=== PATIENT | female | born 1975 | race African-American/Black ===

== ENCOUNTER 2021-04-03 12:12 | Inpatient (IN) | payer OTHER ==
[~2021-04-03] VITALS: Ht 157.5 cm; Wt 87.0 kg
--- NOTE | ~2021-04-03 | EMS ---
[address] [address] EMS Patient Care Report Name: MURIEL ALVARENGA Room #: 206-P ADM IN M.R.#: [id number] Admission: 04/03/21 Attend Phys: Alfredo Bernal MD Discharge: Date of : 73 Report #: [id number] THIS REPORT FOR: //name// Report Transmitted: 04/07/2021 07:56 EMS Care Summary [place], [place]/[facility] Incident [id number] @ 04/03/2021 11:21 Incident Location [address] [place] [address] Patient MURIEL ALVARENGA Female, 45 Years 1975 Patient Address [address] [place] [address] Patient History Diabetes,Hypertension (HTN), Patient Allergies No known allergies, Patient Medications None Reported, Chief Complaint ABNORMAL RIGHT LEG WEAKNESS Disposition Transported No Lights/[place] Dispatch Reason Sick Person Transported To [facility] Narrative EMS ARRIVED ON SCENE AT THE ADDRESS ABOVE. EMS MADE PT CONTACT, PT WAS SITTING ON HER COUCH, GCS 15 IN NO REPORTED PAIN. PT STATED THAT SHE HAS HAD AN ABNOMRAL GAIT SINCE 2PM YESTERDAY, PT HAS HISTORY OF HYPERTENSION AND HAS BEEN [address] [address] EMS Patient Care Report Name: MURIEL ALVARENGA Room #: 206-P ADM IN Tamir#: [id number] Admission: 04/03/21 Attend Phys: Alfredo Bernla MD Discharge: Date of : 73 Report #: [id number] WITHOUT MEDS FOR AN EXTENEDED AMOUNT OF TIME. PT HAS NO HISTORY OF STROKE. EMS HAD LONG SCENE TIME DUE TO PT CHANGING CLOTHES BEFORE HOSPITAL. PT WAS NEGATIVE FOR STROKE F.A.S.T ASSESSMENT. VITAL SIGNS WERE MONITORED THROUGHOUT TRANSPORT WITH NO DECLINE IN MENTAL OR PHYSICAL STATUS. TRANSFER OF CARE WAS GIVEN TO RN AT [facility]. Initial Vitals @11:39P: 116,R: 16,BP: 185/114,Pain: 0/10,GCS: 15,CO: 2,SpO2: 98,Revised Trauma: 12, @11:48P: 111,R: 18,BP: 182/112,Pain: 0/10,GCS: 15,SpO2: 99,Revised Trauma: 12, @11:57P: 102,R: 16,BP: 179/108,Pain: 0/10,GCS: 15,SpO2: 99,Revised Trauma: 12, Assessments @:28MENTAL:Person Oriented,Place Oriented,Event Oriented,Time Oriented,SKIN:HEENT:Head/Face: No Abnormalities,Neck/Airway: No Abnormalities,LUNG SOUNDS:General: No Abnormalities,ABDOMEN:General: No Abnormalities,PELVIS//GI:No Abnormalities,EXTREMITIES:Right Leg: Weakness,Left Arm: No Abnormalities,Right Arm: No Abnormalities,Left Leg: No Abnormalities,PULSE:NEURO:Abnormal Gait, Impression Generalized Weakness Procedures @11:28 ALS Assessment Response: UnchangedSucceeded Timeline 11:19,Call Received 11:19,Dispatch Notified 11:21,Dispatched 11:22,En Route 11:27,On Scene 11:28,At Patient 11:28,ALS Assessment,Response: UnchangedSucceeded, 11:39,BP: 185/114 M,PULSE: 116,RR: 16 R,SPO2: 98 Ox,ETCO2: ,BG: ,PAIN: 0,GCS: 15, 11:48,BP: 182/112 M,PULSE: 111,RR: 18 R,SPO2: 99 Ox,ETCO2: ,BG: ,PAIN: 0,GCS: 15, 11:55,Depart Scene 11:57,BP: 179/108 M,PULSE: 102,RR: 16 R,SPO2: 99 Ox,ETCO2: ,BG: ,PAIN: 0,GCS: 15, 12:05,At Destination 12:25,Call Closed Disclaimer [address] [address] EMS Patient Care Report Name: MURIEL ALVARENGA Room #: 206-P ADM IN .R.#: [id number] Admission: 04/03/21 Attend Phys: Alfredo Bernal MD Discharge: Date of : 73 Report #: [id number] v1.1 Copyright 2020 [employer] This EMS Care Summary contains data elements from the applicable legal record (which may be displayed differently). It is designed to provide pertinent information for the following purposes: continuity of care, clinical quality, and state data reporting. The complete legal record is available to ED staff and administrators of the receiving hospital in [facility]'s Patient Tracker. All data is provided "as is."
[2021-04-03 12:15] VITALS: BP 204/124
[2021-04-03 12:50] LABS: HEMATOCRIT 34.9 % (37.0-47.0); HEMOGLOBIN 10.9 gm/dL (12.0-15.0); MCH 21.6 pg (26.0-34.0); MCHC 31.3 g/dL (28.0-37.0); PLATELET COUNT 401 thou/uL (150-400); RBC 5.05 mil/uL (4.20-5.00); WBC 7.4 thou/uL (4.0-11.0)
[2021-04-03 13:04] LABS: ANION GAP 12 mmol/L (7-16); BUN 26 mg/dL (7-18); CALCIUM 9.2 mg/dL (8.5-10.1); CHLORIDE 100 mmol/L (98-107); CO2 26 mmol/L (21-32); CREATININE 1.2 mg/dL (0.6-1.0); GLUCOSE 224 mg/dL (74-106); POTASSIUM 3.4 mmol/L (3.5-5.1); SODIUM 138 mmol/L (136-145)
[2021-04-03 13:16] LABS: ALBUMIN 3.4 g/dL (3.4-5.0); DIRECT BILIRUBIN < 0.1 mg/dL (<0.1-0.2); SGOT 9 U/L (15-37); SGPT 19 U/L (30-65); TOTAL BILIRUBIN 0.4 mg/dL (0.2-1.0); TOTAL PROTEIN 7.9 g/dL (6.4-8.2)
[2021-04-03 13:57] LABS: URINE BILIRUBIN NEGATIVE (Negative); URINE BLOOD NEGATIVE (Negative); URINE CLARITY CLEAR; URINE COLOR YELLOW; URINE GLUCOSE-RANDOM* 1+ (Negative); URINE KETONES NEGATIVE (Negative); URINE LEUKOCYTES-REFLEX NEGATIVE (Negative); URINE NITRITE-REFLEX NEGATIVE (Negative); URINE PROTEIN (DIPSTICK) TRACE (Negative); URINE SPECIFIC GRAVITY 1.025 (1.005-1.035); URINE UROBILINOGEN 0.2 E.U./dl (0.2-1.0)
--- NOTE | 2021-04-03 14:05 | EKG ---
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
[2021-04-03 14:23] LABS: HYPOCHROMASIA 1+; POIKILOCYTOSIS 1+
[2021-04-03 14:24] LABS: ANISOCYTOSIS 2+; MICROCYTES 2+
[2021-04-03] MEDS ORDERED: AMLODIPINE BESY10 MG PO (17:13)
[2021-04-03 17:57] LABS: FOLIC ACID 16.7 ng/mL (8.6-58.9)
--- NOTE | 2021-04-03 20:30 | NUR ---
SPOKE WITH BLUE ANDREY NEURO PHYSICIAN IN ORDER TO RECEIVE PARAMETERS FOR PT SBP.
[2021-04-04 00:27] VITALS: BP 159/86
[2021-04-04 04:06] LABS: GLYCOHEMOGLOBIN (HGB A1C) 8.7 % (4.8-5.6)
[2021-04-04 04:54] LABS: CALCIUM 8.8 mg/dL (8.5-10.1); CREATININE 1.4 mg/dL (0.6-1.0)
[2021-04-04 04:55] LABS: CHOLESTEROL 252 mg/dL (<200); HDL CHOLESTEROL 61 mg/dL (>40); LDL CHOLESTEROL 169 mg/dL (<100); SERUM ASSESSMENT Clear; TC:HDL 4.1 Ratio (Not establshd); TRIGLYCERIDE 110 mg/dL (<150); VLDL 22 mg/dL (<40)
[2021-04-04 05:56] LABS: HEMATOCRIT 31.4 % (37.0-47.0); MCHC 31.7 g/dL (28.0-37.0); MCV 69.5 fL (80.0-100.0); RBC 4.52 mil/uL (4.20-5.00); WBC 7.9 thou/uL (4.0-11.0)
--- NOTE | 2021-04-04 10:53 | EKG ---
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 : 1975 Requested By: Alfredo Bernal Order Number: [id number] MD: Siva Deivne Measurements Intervals [place] Rate: 101 P: 24 NE: 171 QRS: 8 QRSD: 106 T: 58 QT: 400 QTc: 519 Interpretive Statements Sinus tachycardia Probable anteroseptal infarct Prolonged QT interval Compared to ECG 04/03/2021 12:48:36 Prolonged QT interval now present Sinus rhythm no longer present Myocardial infarct finding still present Electronically Signed On 04-04-2021 10:53:15 SEWING TECHNIQUES DEMONSTRATOR by Siva Devine [email or web address] <ELECTRONICALLY SIGNED> By: Siva Devine MD 04/04/21 1053 D: 12/2309 09 Siva Devine MD /SU
[2021-04-04 12:01] VITALS: BP 141/74
--- NOTE | 2021-04-04 12:07 | NUR ---
ISAIAH WAS CONTACTED @0586 REGARDING THE NEURO CONSULT FROM 04/03 @1060 TRYING TO RECEIVE INFORMATION FROM SAID CONSULT. NO NOTE OR PLAN WAS DOCUMENTED REGARDING THE CONSULT. DR. MANUEL WAS THE PHYSICIAN OF THE CONSULT AND WILL NOT BE AVAILABLE AGAIN UNTIL 1700 OF 04/04. ANSWERING SERVICE ALSO STATED THERE WERE NO NOTES OR DOCUMENTATION LEFT REGARDING THIS CONSULT EITHER. P# TO REACH ISAIAH @1267: [phone]
[2021-04-04 12:30] VITALS: BP 159/83
[2021-04-04 16:30] VITALS: BP 158/100
--- NOTE | 2021-04-04 17:51 | NUR ---
PATIENT ASSESMENTS CHARTED. PATIENT ZOOMED WITH NEURO. WAITING FOR MRI.
[2021-04-04 20:16] VITALS: BP 181/102
--- NOTE | 2021-04-05 04:00 | NUR ---
alert and oriented thro the noc. Denies any numbness or tingling in extremeties. R sided weakness. SR on telemetry. BP elevated. Denies pain.
[2021-04-05 04:15] VITALS: BP 183/102
[2021-04-05 07:00] VITALS: BP 185/108
[2021-04-05 11:00] VITALS: BP 175/114
[2021-04-05 15:30] VITALS: BP 177/105
--- NOTE | 2021-04-05 19:26 | NUR ---
Pt was A&Ox4, VS stable, afebrile throughout shift. Pt needed one dose of hydralazyine for SBP 185 in AM. Has not needed hydralazine for remainder of shift. Pt has been resting in bed. No pain reported. No cncerns reported. Plan is for MRI ON 04/06/21. No concerns at this time. Continue to monitor.
[2021-04-05 20:04] VITALS: BP 182/108
[2021-04-06] VITALS (7 sets, daily range): BP systolic 149–181; BP diastolic 85–111
--- NOTE | 2021-04-06 02:27 | NUR ---
ASSESSMENTS CHARTED, MEDS CHARTED GIVEN. PATIENT RESTING IN BED DURING SHIFT. STATES THAT RIGHT LEG IS STILL LEADENED FEELING. SHE IS HOPING THE MRI WILL REVEAL WHAT IS GOING ON. MAINTENANCE FLUIDS RUNNING. GAVE HYDRALAZINE AT START OF SHIFT FOR ELEVATED BLOOD PRESSURE.
--- NOTE | 2021-04-06 17:14 | NUR ---
Chart reviewed and case discussed with the care team. Cm role introduced to pt at bedside. Stroke workup in progress. PT/OT/Rehab evals requested. Pt indicates that she lives alone and works fulltime from home. 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 She has no steps and was indep with gait, adl's and driving prior. She is having rt sided weakness and needed a rwalker with therapy today. Pt has no dme at home. she is open to outpt thearpy here if needed or inpt rehab if recommended. She does not have a pcp and stopped taking her meds a while ago. Establishing a pcp discussed at length including call her old pcp office for an appt, calling [facility] service for assistance, and using [facility]. She will need any scripts with a 90 day refill to allow her time to get a f/u appt with a pcp. [facility] might be in network also. Will followup with the care team recommendations. Pt will likely need a FWW and outpt therapy scripts at [place].
--- NOTE | 2021-04-06 18:32 | NUR ---
ASSESSMENT CHARTED. MEDS PER MAR - NO CO'S OF PAIN OR NAUSEA. KRISHNA DIET AND FLUIDS. UP TO THE BEDSIDE COMMODE - SEEN BY PHYS THERAPY AMBULATING WITH USE OF WALKER. ACCUCHECKS A CHARTED COVERED PER SSI. FOLLOW UP WITH NEURO WILL OCCUR AFTER PT MRI IS COMPLETED. PT STATES R LEG REMAIN FEELING HEAVY. IV FLUIDS D/C. NO CO'S AT THE PRESENT TIME.
[2021-04-07] VITALS (8 sets, daily range): BP systolic 154–191; BP diastolic 101–114
--- NOTE | 2021-04-07 04:34 | NUR ---
RECEIVED PATIENT AT 1900H.ASSESSMENT DONE CHARTED.MEDS GIVEN PER JUN.HAD ELEVATED BLOOD PRESSURE,PRN HYDRALAZINE GIVEN.FALL PREVENTION MEASURES MAINTAINED.ALL NEEDS ATTENDED.TO CONTINOUSLY MONITOR.
--- NOTE | 2021-04-07 16:18 | NUR ---
CM MET WITH PT THIS DAY. ONCE MEDICALLY STABLE TO DC HOME PT IS BEING RECOMMENDED FOR POST ACUTE REHAB. PT REPORTS SHE IS AGREEABLE FOR POST ACUTE REHAB. SHE REPORTS SHE IS AGREEABLE FOR THERAPY AT HOME WELL BUT REPORTS SHE KNOWS INPATIENT THERAPY WILL MORE EXTENSIVE THEN IF SHE GOES HOME AND SHE WANTS TO GET THE HELP SHE NEEDS TO GET BACK TO BEING COMPLETELY INDEPENDENT. SHE REPORTS SHE LIVES AT HOME WITH HER SON. HE WORKS NIGHTS SO SHE WILL BE BY HERSELF AT NIGHT. SPOKE TO KAI ON 5N AND CONSULT PLACED. AUTH SUBMITTED. NARDA WILL CONTINUE TO FOLLOW.
--- NOTE | 2021-04-07 16:43 | NUR ---
PATIENT IS AN APPROPRIATE PATIENT FOR ACUTE REHAB. D/C LICENSED AUDIOLOGIST REQUESTED THAT AUTHORIZATION BE REQUESTED THIS DATE. PATIENT'S INSURANCE CONTACTED AND [facility] IS IN NETWORK AND PATIENT DOES HAVE ACUTE REHAB BENEFIT (CALL REF #[id number]). AUTHORIZATION REQUESTED. AWAITING CALL BACK FROM REVIEWER WITH FAX NUMBER TO SEND CLINICAL INFORMATION. THANK YOU FOR THIS REFERRAL.
--- NOTE | 2021-04-07 18:36 | NUR ---
ASSESSMENT CHARTED - MEDS PER MAR - KRISHNA DIET AND FLUIDS. UP TO THE BEDSIDE COMMODE - AMBULATED WITH WALKER AND PHYS THERAPY - STATES THAT LEG CONTINUES TO FEEL HEAVY AND NUMB. SEEN BY NEUROLOGY THIS SHIFT - PT TO HAVE ECHO IN THE AM PER NEURO. TOPROL INCREASED, ACCUCHECKS CHARTED - COVEREDPER SSI - NO CO'S OF PAIN OR NAUSEA. NO CO'S AT THE PRESENT TIME.
[2021-04-08 03:50] VITALS: BP 159/91
--- NOTE | 2021-04-08 04:02 | NUR ---
RECEIVED PATIENT AT 1900H.ASSESSMENT DONE CHARTED.MEDS GIVEN PER JUN.HAD EPISODES OF ELEVATED BLOOD PRESSURE, DUE ANTIHYPERTENSIVE AND PRN ANTIHYPERTENSIVE GIVEN.LATEST BLOOD PRESSURE THIS MORNING IS BETTER.ALL NEEDS ATTENDED.TO CONTINOUSLY MONITOR.
[2021-04-08 07:36] VITALS: BP 187/107
[2021-04-08] MEDS ORDERED: MIRALAX17 GM PO (11:35)
[2021-04-08] MEDS ORDERED: PROTONIX 20 MG20 M1 PO (11:35)
[2021-04-08] MEDS ORDERED: ACETAMINOPHEN325 M1 PO (11:35)
[2021-04-08] MEDS ORDERED: METOPROLOL SUCC50 MG PO (11:35)
[2021-04-08] MEDS ORDERED: BENAZEPRIL HCL20 MG PO (11:35)
[2021-04-08] MEDS ORDERED: LIPITOR 20 MG T20 M1 PO (11:35)
[2021-04-08] MEDS ORDERED: ASPIRIN325 PO (11:35)
--- NOTE | 2021-04-08 11:56 | NUR ---
NO CALL RECEIVED FROM [facility] WITH FAX NUMBER, SO CALL PLACED BACK TO [facility] THIS MORNING AND FAX NUMBER GIVEN TO LIAISON. CLINICAL INFORMATION SENT AND ONCE RECEIVED, CALL WILL BE PLACED TO [facility] REQUESTING ESCALATION IN PRIORITY OF THIS AUTHORIZATION REQUEST DUE TO INSURNACE NOT CALLING BACK WITH FAX NUMBER AND DELAYING REVIEW.
[2021-04-08 12:09] VITALS: BP 137/94
[2021-04-08 15:13] VITALS: BP 158/108
--- NOTE | 2021-04-08 15:37 | NUR ---
[facility] HAS ACCEPTED PT TO TRANSFER FOR POST ACUTE REHAB WHEN MEDICALLY STABLE. AUTH SUBMITTED YESTERDAY WITH NO APPROVAL AT THIS TIME. SPOKE WITH KAI ON 5N WHO INDICATES AUTH WILL MOST LIKELY BE RECEIVED TOMORROW. CM WILL CONTINUE TO FOLLOW.
--- NOTE | 2021-04-08 18:19 | NUR ---
ASSESSMENT CHARTED - MEDS PER ROYAL - KRISHNA DIET AND FLUIDS. NO CO'S OF PAIN OR NAUSEA. UP WITH USE OF WALKER WITH PHYS THERAPY ASSIST. UP TO THE BSC. PT AWAITING AUTHORIZATION FROM INSURANCE TO TRANSFER TO INPT REHAB. NO CO'S AT THE PRESENT TIME.
[2021-04-08 20:29] VITALS: BP 158/96
[2021-04-08 23:54] VITALS: BP 178/110
[2021-04-09 00:38] VITALS: BP 182/111
[2021-04-09 04:13] VITALS: BP 155/78
--- NOTE | 2021-04-09 04:46 | NUR ---
RECEIVED THE PATIENT AT 1900H.ASSESSMENT DONE CHARTED.MEDS GIVEN PER JUN.HAD ELEVATED BLOOD PRESSURE, DUE ANTIHYPERTENSIVE AND PRN GIVEN.LATEST BLOOD PRESSURE THIS MORNING IS BETTER.ALL NEEDS ATTENDED.TO CONTINOUSLY MONITOR.
[2021-04-09 07:36] VITALS: BP 158/92
--- NOTE | 2021-04-09 09:23 | NUR ---
Ins auth in place for admission to acute rehab today per the 5[facility] liason. Pt is agreeable and will let her family know. Care team updated.
[2021-04-09 11:35] VITALS: BP 147/87
[2021-04-09 15:31] VITALS: BP 140/68
== END 2021-04-09 17:50 | DRG 64 ==
LOC: ER 12:12 → 2N 17:34 → EROBS 17:34 → 2N 04-04 12:36
PROVIDERS: Nurse Practitioner; Student in an Organized Health Care Education/Training Program; ADMIT Internal Medicine; ATTEND Internal Medicine
DX: I63.9 Cerebral infarction, unspecified (principal); G93.41 Metabolic encephalopathy; N17.9 Acute kidney failure, unspecified; I16.1 Hypertensive emergency; G81.91 Hemiplegia, unspecified affecting right dominant side; G93.89 Other specified disorders of brain; I65.21 Occlusion and stenosis of right carotid artery; T46.5X6A Underdosing of other antihypertensive drugs, initial encounter; E87.6 Hypokalemia; I12.9 Hypertensive chronic kidney disease with stage 1 through stage 4 chronic kidney disease, or unspecified chronic kidney disease; E66.01 Morbid (severe) obesity due to excess calories; D63.8 Anemia in other chronic diseases classified elsewhere; N18.9 Chronic kidney disease, unspecified; E11.22 Type 2 diabetes mellitus with diabetic chronic kidney disease; Z20.822 Contact with and (suspected) exposure to COVID-19; Z79.899 Other long term (current) drug therapy; Z68.35 Body mass index [BMI] 35.0-35.9, adult; Z91.14 Patient's other noncompliance with medication regimen; Y92.89 Other specified places as the place of occurrence of the external cause
CPT/HCPCS: 10081

== ENCOUNTER 2021-04-09 09:53 | Inpatient (IN) | payer OTHER ==
[~2021-04-09] VITALS: Ht 157.5 cm; Wt 96.2 kg
--- NOTE | ~2021-04-09 | HC ---
[facility] [place] [address] CONSULTATION Name: MURIEL ALVARENGA Room #: 501-A [facility] IN ..#: [id number] Admission: 04/09/21 Attend Phys: Galdino Lundberg MD Discharge: 04/17/21 Date of : 73 Report #: [id number] THIS REPORT FOR: cc: NO FAMILY PHYSICIAN or PCP NO FAMILY PHYSICIAN or PCP Wily Conti PhD ~ DATE OF SERVICE: 04/13/2021 NEUROBEHAVIORAL STATUS EXAM ATTENDING PHYSICIAN: Dr. Lundberg. LAND TITLE EXAMINER: Wily Conti, PhD CLINICAL PRESENTATION: The patient is a 45-year-old female admitted to the Rehabilitation Unit for a comprehensive inpatient rehabilitation program to improve functional mobility and activities of daily living and self-care secondary to deficits from a cerebrovascular accident. She was initially admitted to the hospital on 04/03/2021 with right sided heaviness. She had a very high blood pressure. An MRI confirmed an acute stroke and a subacute posterior occipital stroke. Her medical problem list included hypertensive emergency, hypertensive urgency, ischemic stroke, paresthesia and stroke-like symptoms. 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 A complete description of her medical condition and history can be found in her medical record. Neuropsychological consultation was requested to provide assistance in the assessment of cognitive and emotional status and to provide recommendations and services. Prior to this most recent medical event, she was living independently in her own home. She has 4 children. 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 She does not report a prior history of treatment for mood disorder. The patient is a high school graduate. She indicates having had 2 additional years of college. TECHNIQUES UTILIZED: Clinical interview, review of medical records, staff consultation and behavioral observation, mini mental status exam 2 standard version and clock drawing. EXAMINATION FINDINGS: The patient was alert and cooperative with the assessment. She accurately described events surrounding her admission. There is no evidence of aphasia. Her thoughts are logical and goal oriented. There [facility] [address] [place] [address] CONSULTATION Name: MURIEL ALVARENGA Room #: 501-A DIS IN ..#: [id number] Admission: 04/09/21 Attend Phys: Galdino Lundberg MD Discharge: 04/17/21 Date of : 73 Report #: [id number] is no evidence of thought disorder. She does not report auditory or visual hallucinations. She indicates improvement in her overall level of functioning with primarily physical symptoms and right sided weakness. She does not report difficulty with memory, word finding, depression or anxiety. She denies a history of alcohol abuse, cannabis use or tobacco. Performance on the MMSE 2 brief version is within normal limits with a raw score of 15/16. She was 3/3 for initial registration, 5/5 for orientation to time and place and 2/3 for immediate recall and 3 items after a brief time delay and distraction. Performance on the MMSE 2 standard version is within normal limits with a raw score of 27/30. She was 4/5 for serial sevens, 2/2 for naming, 1/1 for repetition, 3/3 for comprehension. She could read and follow a single command and write a sentence. The patient had some difficulty with copying a simple geometric design. Clock drawing was generally within normal limits with deficits in graphomotor coordination. The patient is alert and oriented. The deficits in graphomotor coordination are likely a result of this stroke. 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 RECOMMENDATIONS: The patient may benefit from a more thorough Neuropsych upon completion of her rehabilitation program and resolution of stroke symptoms. At this time, assistance may be necessary to help with aspects of the instrumental activities of daily living including driving. Educational information in regard to stroke and recovery along with continued physical therapy to assist with and occupational therapy may be of benefit to assist with general strengthening and endurance. Thank you very much for allowing me to provide the consultation on this patient. By: 1207 03 Wily Conti, PhD /nt
[~2021-04-09 09:53] MED LIST: ACETAMINOPHEN325 M1 PO; AMLODIPINE BESY10 MG PO; ASPIRIN325 PO; BENAZEPRIL HCL20 MG PO; LIPITOR 20 MG T20 M1 PO; METOPROLOL SUCC50 MG PO; MIRALAX17 GM PO; PROTONIX 20 MG20 M1 PO
--- NOTE | 2021-04-09 18:00 | NUR ---
PT ARRIVED VIA W/C TO ROOM. PT ALERT AND ORIENTED. PT SIGNED CONSENT FORMS. PT WAS WEIGHED AND VS TAKEN. PT BP ELEVATED. PT STATED SHE THINKS HER JOB MADE HER STRESSED OUT AND SHE WAS GOING TO TAKE A LEAVE, THEN SHE ENDED HAVING A STROKE.
[2021-04-09 18:58] VITALS: BP 178/110
--- NOTE | 2021-04-09 21:50 | NUR ---
ASSUMED CARE OF PT AT 1915. PT IS A&OX4. IS ON ROOM AIR. DENIES PAIN, N/T IN UPPER OR LOWER EXTREMITIES. REPORTS RLE WEAKNESS. IS STABLE. IS UP WITH STANDBY ASSIST, ROSANNA, TO BSC. FALL PREAUTIONS & HOURLY ROUNDING IMPLEMENTED. LABS & VTIALS REVIEWED. PT BP WAS ELEVATED. PLEASE SEE APPROPRIATE SECTIONS OF CHART FOR DETAILS. COUNTERINTELLIGENCE SPECIALIST LIFT MECHANIC CONTACTED. ORDERS TO BE RECIEVED & IMPLEMENTED. PT WAS ORIENTED TO UNIT, CALL LIGHT, & ROOM. ADMISSION PACKET GIVEN & EXPLAINED. YELLOW FALL BAND APPLIED. YELLOW SOCKS IN ROOM ON BS TABLE. SCDS PLACED. ADMISSION EDUCATION, ASSESSMENT, SEPSIS SCREENING COMPLETED. PT IS CURRENTLY IN ROOM IN BED WATCHING TV. CALL LIGHT WITHIN REACH. IS ACCU CHECK ACHS. WILL CONTINUE TO MONITOR.
[2021-04-10 05:26] LABS: HEMATOCRIT 32.7 % (37.0-47.0); HEMOGLOBIN 10.5 gm/dL (12.0-15.0); MCH 22.2 pg (26.0-34.0); MCV 69.5 fL (80.0-100.0); RBC 4.71 mil/uL (4.20-5.00); RDW 21.7 % (10.5-14.5); WBC 6.9 thou/uL (4.0-11.0)
[2021-04-10 05:33] LABS: CALCIUM 9.1 mg/dL (8.5-10.1); CREATININE 1.3 mg/dL (0.6-1.0); POTASSIUM 3.7 mmol/L (3.5-5.1)
[2021-04-10 05:59] LABS: FOLIC ACID 19.7 ng/mL (8.6-58.9)
[2021-04-10 08:00] VITALS: BP 150/98
--- NOTE | 2021-04-10 08:48 | NUR ---
Nutrition: pt admitted with acute CVA to rehab unit. BMI 38, obesity class 2. Hx DM. A1C 8.7, Chol 252, LDL 169. Fair to good oral intake. Pt was seen and educated on Heart healthy carb controlled diet on 04/08. Was receptive to education and goals identified. Would benefit from healthy weight loss. Place as low nutrition risk.
--- NOTE | 2021-04-10 09:39 | NUR ---
PT WORKING WITH THERAPY THIS AM. PT STATED SHE DOES HAVE SOME HEAVINESS FEELING TO RT LEG AND ON TOP OF RT FA. PT DENIES ANY TINGING OR NUMBNESS. PT DOES HAVE A LIMP WHEN WALKING. PT UP VIA BSC TO VOID. PT UP WITH GAIT BELT AND WALKER WITH STAND-BY ASSIST. PT STATED SHE DIDN'T TAKE HER MEDS DUE TO TIRED OF TAKING MEDS EVERYDAY, PT REALIZES NOW THAT IT COULD OF BEEN WORSE SYMPTOMS. PT STATED SHE WILL TAKE HER MEDS NOW AT HOME. PT LUNGS CLEAR AND ON ROOM AIR. PT TOOK MEDS WHOLE WITHOUT ANY ISSUES.
--- NOTE | 2021-04-10 09:45 | NUR ---
PT WAS SEEN BY DR. ODONNELL A NEUROLOGIST VIA TELEMEDICINE. HE RECOMMENDS PT GET A ECHO TEST WHILE IN REHAB. PT TOLD ABOUT WHY SHE CAME IN AND HER SYMPTOMS. 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
[2021-04-10 19:20] VITALS: BP 153/85
--- NOTE | 2021-04-11 00:14 | NUR ---
PT ALERT AND ORIENTED X 4. AMB TO BR WITH WALKER AND ASSIST X 1. REPORTS HEAVINESS IN RIGHT ARM AND LEG. BP 153/85 AT START OF SHIFT. PT DENIES PAIN OR DISCOMFORT. BED ALARM ON FOR SAFETY. PT APPEARS TO BE SLEEPING ON HOURLY ROUNDS.
[2021-04-11 03:06] LABS: GLYCOHEMOGLOBIN (HGB A1C) 8.4 % (4.8-5.6)
[2021-04-11 07:15] VITALS: BP 189/101
--- NOTE | 2021-04-11 17:27 | NUR ---
PT HAS HAD A PLEASANT DAY. SHE TALKED ON THE PHONE WITH SEVERAL FAMILY MEMBERS AND HER SON CAME TO VISIT HER TODAY.
[2021-04-11 19:01] VITALS: BP 167/85
--- NOTE | 2021-04-12 03:41 | NUR ---
assumed care approx 1900 evening 04/11. pt alert and oriented x4, pleasant and cooperative. pt up to bsc to void tonight tolerating well. pt took hs meds with water tolerating well. pt appears to be sleeping soundly. bed alarm on and call light in reach. will continue to monitor.
[2021-04-12 07:15] VITALS: BP 164/93
--- NOTE | 2021-04-12 15:55 | NUR ---
PT CONTINUES TO HAVE A DIFFICULT TIME GETTING STARTED IN THE MORNINGS. COMPLIANT WITH CARES. DENIES PAIN OR DISCOMFORT. DID HAVE A FULL DAY OF THERAPY TODAY.
[2021-04-12 21:23] VITALS: BP 161/98
--- NOTE | 2021-04-13 03:31 | NUR ---
assumed care approx 1900 evening 04/12. pt lying in bed sleeping soundly at change of shift. pt awoke late and requested to take Trazadone approx 2300. pt swallows with water without difficulty. pt using bsc to void. pt appears to be sleeping soundly. bed alarm on and call light in reach. will continue to monitor.
[2021-04-13 08:00] VITALS: BP 174/90
--- NOTE | 2021-04-13 08:20 | NUR ---
Chart review. She up for breakfast and working with therapy. DX CVA. Noted she lives at home alone, independent. Works from home full-time. No dme. No stairs at home. 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 Prior to admit on acute rehab, cm team discussed getting pcp at [facility]. Will cont following as needed.
--- NOTE | 2021-04-13 08:59 | NUR ---
PT SLEEPY THIS AM. PT GETTING UP FOR THERAPY. PT UP WITH STAND-BY ASSISTANCE WITH GAIT BELT. PT HAS AFO FOR RT LE, PT STATED HER RT KNEE REYES AT TIMES. PT LUNGS CLEAR. PT BP LOWER THIS AM AND TOLERATING BP MEDICATION. NO COMPLAINTS OF HEADACHE OR DIZZINESS.
[2021-04-13 19:54] VITALS: BP 157/84
--- NOTE | 2021-04-14 04:51 | NUR ---
ASSUMED CARE AT 1900 OF 04/13. PATIENT IS A&OX4. DENIES PAIN OR SHORTNESS OF BREATH. ABLE TO MAKE NEEDS KNOWN. TOLERATED ORAL MEDS WHOLE WITH THIN LIQUIDS. STAND BY ASSIST WITH TRANSFERS AND AMBULATION USING GB AND CANE. SLEEPING DURING HOURLY ROUNDS, FALL RECAUTIONS IN PLACE. CALL LIGHT WITHIN REACH, WILL CONTINUE TO MONITOR.
[2021-04-14 07:20] VITALS: BP 149/78
--- NOTE | 2021-04-14 09:23 | NUR ---
PT AWAKE AT THIS TIME, PT DID SLEEP IN. PT DENIES ANY PAIN. PT STATED SHE DIDN'T GET HER ECHO DONE YET. WILL FOLLOW UP ON ORDER. PT LUNGS CLEAR. PT STILL HAS SLIGHT WEAKNESS TO RT LEG, PT UP WITH CANE WITH LIMP. PT USES BSC OR WALKS TO BATHROOM WITH STAND-BY ASSIST.
[2021-04-14 19:25] VITALS: BP 144/92
--- NOTE | 2021-04-15 06:05 | NUR ---
ASSUMED CARE AT 1915 OF 04/14. PATIENT IS A&OX4. DENIES PAIN OR SOB. STAND BY ASSIST WITH TRANSFERS TO [facility]. PATIENT PROVIDED WITH HS SNACK PER REQUEST. TRAZADONE ADMINISTERED AT 1999, PATIENT WAS UP AROUND 2300 TALKING ON THE PHONE. ONCE SHE WENT BACK TO SLEEP SHE WAS NOTED TO SLEEP DURING HOURLY ROUNDS. FALL PRECAUTIONS IN PLACE, CALL LIGHT WITHIN REACH. WILL CONTINUE TO MONITOR.
[2021-04-15 08:30] VITALS: BP 171/91
--- NOTE | 2021-04-15 09:36 | 2DMMODE ---
[facility] [place] [address] 2 D/M-MODE ECHOCARDIOGRAM Name: MURIEL ALVARENGA Room #: 516-1 ADM IN M.R.#: [id number] Admission: 04/09/21 Attend Phys: Galdino Lundberg MD Discharge: Date of : 73 Report #: [id number] THIS REPORT FOR: cc: NO FAMILY PHYSICIAN or PCP NO FAMILY PHYSICIAN or PCP Joshua Salcedo MD [facility] ~ APPROVED REPORT Study performed: 04/15/2021 09:02:00 EXAM: Comprehensive 2D, Doppler, and color-flow Echocardiogram Patient Location: Bedside Room #: 516 Status: routine BSA: 1.96 HR: 73 bpm BP: 144/92 mmHg Rhythm: NSR Other Information Study Quality: Good Indications CVA/TIA Hypertension/HDD 2D Dimensions IVSd: 12.50 (7-11mm) LVOT Diam: 21.22 (18-24mm) LVDd: 42.73 mm PWd: 12.25 (7-11mm) Ascending Ao: 26.57 (22-36mm) LVDs: 28.31 (25-40mm) Left Atrium: 24.35 (27-40mm) Aortic Root: 26.76 mm IVC: 11.00 mm Volumes Left Atrial Volume (Systole) Single Plane 4CH: 58.08 mL Single Plane 2CH: 40.34 mL LA ESV Index: 28.00 mL/m2 Aortic Valve AoV Peak Rolando.: 1.48 m/s AO Peak Gr.: 8.79 mmHg LVOT Max P.01 mmHg LVOT Max V: 1.00 m/s CORY Vmax: 2.39 cm2 [facility] [email or web address] [address] 2 D/M-MODE ECHOCARDIOGRAM Name: MURIEL ALVARENGA Room #: 516-1 ADM IN [facility].#: [id number] Admission: 04/09/21 Attend Phys: Galdino Lundberg MD Discharge: Date of : 73 Report #: [id number] Mitral Valve E/A Ratio: 1.1 MV Decel. Time: 229.65 ms MV E Max Rolando.: 0.86 m/s MV A Rolando.: 0.78 m/s MV PHT: 66.60 ms IVRT: 106.11 ms Pulmonary Valve PV Peak Rolando.: 1.10 m/s PV Peak Gr.: 4.86 mmHg Pulmonary Vein P Vein S: 0.52 m/s P Vein A: 0.22 m/s P Vein D: 0.41 m/s P Vein A Dur.: 92.3 msec P Vein S/D Ratio: 1.27 Left Ventricle The left ventricle is normal size. There is normal LV segmental wall motion. Mild concentric left ventricular hypertrophy. Left ventricular systolic function is normal. The left ventricular ejection fraction is within the normal range. LVEF is 55-60%. The left ventricular diastolic function is normal. Right Ventricle The right ventricle is normal size. The right ventricular systolic function is normal. Atria The left atrium size is normal. Patient on rehab unit and did not have IV access, no bubble study performed. The right atrium size is normal. Aortic Valve The aortic valve is normal in structure. No aortic regurgitation is present. There is no aortic valvular stenosis. Mitral Valve The mitral valve is normal in structure. There is no mitral valve regurgitation noted. No evidence of mitral valve stenosis. Tricuspid Valve The tricuspid valve is normal in structure. There is no tricuspid valve regurgitation noted. Pulmonic Valve [facility] [address] [place] [address] 2 D/M-MODE ECHOCARDIOGRAM Name: MURIEL ALVARENGA Room #: 516-1 ADM IN M.R.#: [id number] Admission: 04/09/21 Attend Phys: Galdino Lundberg MD Discharge: Date of : 73 Report #: [id number] The pulmonary valve is normal in structure. There is no pulmonic valvular regurgitation. Great Vessels The aortic root is normal in size. IVC is normal in size and collapses >50% with inspiration. Pericardium There is no pericardial effusion. <Conclusion> Normal left ventricular size Mild to moderate concentric hypertrophy Ejection fraction 60% Normal atrial size Normal aortic valve structure and function Mild mitral annular calcification without stenosis No tricuspid valve insufficiency No pericardial effusion Normal aortic root size <ELECTRONICALLY SIGNED> By: Joshua Salcedo MD, FACC 04/15/21935 5 5 Joshua Salcedo MD, [facility] /INF
[2021-04-15 19:38] VITALS: BP 147/95
--- NOTE | 2021-04-16 00:19 | NUR ---
PT ALERT AND ORIENTED X 4. RIGHT SIDED WEAKNESS. PT DENIES PAIN OR DISCOMFORT. BED ALARM ON FOR SAFETY. PT APPEARS TO BE SLEEPING ON HOURLY ROUNDS.
[2021-04-16 06:37] LABS: ABSOLUTE NEUTROPHILS 4.2 thou/uL (1.4-8.2); BASOPHILS 0.6 % (0.0-2.0); EOSINOPHILS 3.3 % (0.0-3.0); HEMATOCRIT 31.7 % (37.0-47.0); HEMOGLOBIN 10.1 gm/dL (12.0-15.0); LYMPHOCYTES 25.4 % (24.0-44.0); MCH 22.7 pg (26.0-34.0); MCHC 31.9 g/dL (28.0-37.0); MCV 71.3 fL (80.0-100.0); MONOCYTES 8.1 % (1.0-8.0); PLATELET COUNT 284 thou/uL (150-400); POLYS 62.6 % (36.0-66.0); RBC 4.46 mil/uL (4.20-5.00); RDW 22.1 % (10.5-14.5); WBC 6.7 thou/uL (4.0-11.0)
[2021-04-16 06:48] LABS: CALCIUM 8.9 mg/dL (8.5-10.1); CREATININE 1.1 mg/dL (0.6-1.0); MAGNESIUM 1.5 mg/dL (1.8-2.4); POTASSIUM 3.8 mmol/L (3.5-5.1)
[2021-04-16 07:28] VITALS: BP 167/87
--- NOTE | 2021-04-16 11:43 | NUR ---
Nutrition follow up: Pt remains on rehab with improvement towards d/c gaols noted. She shows good dietary intakes on CCHO/heart healthy diet with 75-100% intakes reported. Mg lab 04/16 showed deficiency, supplement added. Noted with vit D deficiency with no active supplementation. BM 04/14. Remains low nutrition risk.
--- NOTE | 2021-04-16 11:46 | NUR ---
Vitamin D deficient, recommend supplementation.
--- NOTE | 2021-04-16 12:45 | NUR ---
team, recommendation: elizabeth 04/17/21. mod I with ADL's, going to do cooking task. FMLA paperwork being completed. She will need to follow up with pcp to see how long she can remain off from work. will need to follow up with pcp to get cleared before she can drive. will need fww. outpt rehab.
[2021-04-16] MEDS ORDERED: METOPROLOL SUCC50 MG PO (14:15)
[2021-04-16] MEDS ORDERED: METFORMIN HCL500 MG PO (14:15)
[2021-04-16] MEDS ORDERED: LIPITOR 20 MG T20 M1 PO (14:15)
[2021-04-16] MEDS ORDERED: BENAZEPRIL HCL20 MG PO (14:15)
[2021-04-16] MEDS ORDERED: MAGOX 400400 MG PO (14:15)
[2021-04-16] MEDS ORDERED: HYDRALAZINE 10M10 MG PO (14:16)
[2021-04-16 19:06] VITALS: BP 154/78
--- NOTE | 2021-04-17 03:36 | NUR ---
ASSUMED CARE OF PT AT 1930 ON 04/16/21. PT IS A&OX4. IS ON ROOM AIR. IS STABLE. DENIES PAIN. IS UP MOD I IN ROOM. CONTINUES WITH RLE WEAKNESS, BUT IS STEADY. HOURLY ROUNDING CONTINUED THIS SHIFT. LABS & VITALS REVIEWED. PT TO D/C HOME TODAY. IS CURRENTLY SLEEPING. CALL LIGHT WITHIN REACH. WILL CONTINUE TO MONITOR.
[2021-04-17 07:18] VITALS: BP 150/86
[2021-04-17] MEDS ORDERED: FREESTYLE LIBR1 EAC4 MISCELL (08:49)
[2021-04-17] MEDS ORDERED: FREESTYLE LANC1 EACH MISCELL (08:49)
[2021-04-17 13:11] VITALS: BP 150/86
== END 2021-04-17 16:10 | disposition home or self-care (01) | DRG 65 ==
PROVIDERS: Nurse Practitioner; Nurse Practitioner Family; ADMIT Physical Medicine & Rehabilitation; ATTEND Physical Medicine & Rehabilitation
DX: I63.9 Cerebral infarction, unspecified (principal); G81.91 Hemiplegia, unspecified affecting right dominant side; N17.9 Acute kidney failure, unspecified; I65.21 Occlusion and stenosis of right carotid artery; G93.89 Other specified disorders of brain; E11.9 Type 2 diabetes mellitus without complications; E78.5 Hyperlipidemia, unspecified; Z60.2 Problems related to living alone; E66.01 Morbid (severe) obesity due to excess calories; R53.81 Other malaise; G47.00 Insomnia, unspecified; Z68.38 Body mass index [BMI] 38.0-38.9, adult; Z79.82 Long term (current) use of aspirin; Z79.899 Other long term (current) drug therapy; Z91.14 Patient's other noncompliance with medication regimen; I16.0 Hypertensive urgency
CPT/HCPCS: 10112